=== PATIENT | female | born 1970 | race Caucasian/White ===

== ENCOUNTER 2018-12-29 05:25 | Day surgery (SDC) | payer OTHER ==
[2018-12-26 12:22] LABS: BASOPHILS 0.4 % (0-2); EOSINOPHILS 2.6 % (0-7); HEMATOCRIT 43.8 % (36.0-48.0); HEMOGLOBIN 15.1 g/dL (12-16); LYMPHOCYTES 36.1 % (15-50); MCH 32.5 pg (26.0-34.0); MCHC 34.5 g/dL (31.0-37.0); MCV 94.4 fL (80.0-100.0); MEAN PLATELET VOLUME 11.1 fL (7.4-10.4); MONOCYTES 5.2 % (2-11); NEUTROPHILS 55.7 % (40-80); PLATELET COUNT 191 10x3/uL (130-400); RBC 4.64 10x6/uL (4.00-5.40); RDW 13.2 % (11.5-14.5); WBC 8.4 10x3/uL (4.8-10.8)
[2018-12-26 12:31] LABS: ANION GAP 15.2 mmol/L (8-16); CARBON DIOXIDE 26.5 mmol/L (21.0-32.0); CREATININE - SERUM 1.1 mg/dL (0.6-1.3); POTASSIUM - SERUM 4.7 mmol/L (3.5-5.1)
[~2018-12-29] VITALS: Ht 175.3 cm; Wt 75.9 kg
[2018-12-29] VITALS (11 sets, daily range): BP systolic 94–117; BP diastolic 56–65; Ht 175.3 cm; Wt 75.9 kg
--- NOTE | ~2018-12-29 | OP ---
PATIENT NAME: KATHERIN AGUIRRE MEDICAL RECORD: [id number] :66 LOCATION:D[facility] ADMISSION DATE: SURGEON: ISABEL DELEON MD DATE OF OPERATION: 12/29/2018 PREOPERATIVE DIAGNOSES: 1. Dysfunctional bleeding. 2. Dyspareunia. 3. History of abnormal Pap. 4. Chronic endometritis. POSTOPERATIVE DIAGNOSES: 1. Dysfunctional bleeding. 2. Dyspareunia. 3. History of abnormal Pap. 4. Chronic endometritis. 5. Pelvic adhesive disease. PROCEDURE PERFORMED: Lysis of adhesions, total laparoscopic hysterectomy, bilateral salpingectomy. SURGEON: Isabel Deleon MD. EXT JS DEVELOPER: Dominick Weber MD. ANESTHESIOLOGIST: Dr. Andrews. ANESTHETIC: General. FINDINGS: Uterus is boggy and otherwise unremarkable. There appears to be powder burn lesion anterior to the uterus consistent with endometriosis. The ovary on the right is unremarkable. The left ovary was absent. At the time of vaginal close, the vaginal mucosa was unremarkable. Dense adhesions of the bladder along the anterior surface of the cervix was encountered. SPECIMENS REMOVED: Uterus with portions of right tube and cervix. SPECIMEN DISPOSITION: Pathology. ESTIMATED BLOOD LOSS: Less than or equal to 100 cc. FLUIDS: 1700 cc of lactated Ringer's. URINE OUTPUT: Approximately 400 cc of clear urine. COMPLICATIONS: None. DRAINS: Gao to gravity discontinued in women's services. INDICATIONS: The patient is a 48-year-old female with postcoital spotting and intermittent spotting. The patient also has had a history of abnormal Pap smears. The patient reports dyspareunia and a negative impact on her quality of life. The patient has been counseled and strongly desires definitive treatment for history of abnormal Pap smears and bleeding irregularities. OPERATIVE REPORT [id number] KATHERIN AGUIRRE DESCRIPTION OF PROCEDURE: After informed consent was assured, the patient was taken to the operating room where anesthetic was obtained. The patient was now prepped and draped in the usual sterile fashion. Uterine manipulator was placed and attention was directed to the abdomen where an incision was made and a trocar inserted. Pneumoperitoneum was developed. Assessment of the pelvis reveals dense adhesions in the bladder anteriorly and medical claims assistant surgeon is called. The dissection begins on the left. With the accessory trocars placed in the right and left lower quadrants, a grasper was used to elevate what remained of the left tube and the dissection was carried out underneath this across the uteroovarian ligament and round ligaments. The broad ligament was opened and meticulous dissection of the adhesions of the bladder from the cervix begins on the left. Once the bladder flap was developed to the midline, the vessels were skeletonized, compressed, coagulated, and on the left. Attention was now directed to the right. Remnants of the tube were attached to the ovary and these were removed. Dissection was carried out medial to the ovary across the uteroovarian ligament and round ligaments. The broad ligament was opened and dissection of the adhesions from the cervix anteriorly continues. Posteriorly, the tissue was dissected free of the vessel bundle. The vessels were now compressed, coagulated, and . Using a Harmonic scalpel, the removal of the uterus from its attachments to the vagina begins at the 6 o'clock position. The dissection was carried out from 6 to 3 o'clock. It was continued from 6 to 12 and then concluded from 12 to 3. Uterus is now placed into the vagina. Pneumoperitoneum remains and the pelvis was irrigated. No adequate hemostasis has been achieved. Uterus is now removed and the cuff closed in a horizontal fashion with interrupted Vicryl stitches. After conclusion of the close, the pelvis was again inspected and irrigated. Adequate hemostasis again is noted. The trocars were removed after release of the pneumoperitoneum and the skin reapproximated with subcuticular stitch. Sponge, lap, needle counts were correct times 2 at the close of this procedure. TRANSINT:[id number] Voice Confirmation ID: [id number] DOCUMENT ID: [id number] 01/05/2019 Edited, procedure performed line was missing, dmm. ISABEL DELEON MD CC: [id number] DICTATION DATE: 12/29/18920 PLANT TECH: 12/29/1849 [facility] 12/29/18 [facility] [address] [place] [address]
[~2018-12-29 05:25] MED LIST: XANAX0.5 MG PO
[2018-12-29 07:08] LABS: HCG URINE NEGATIVE (NEGATIVE)
--- NOTE | 2018-12-29 10:22 | NUR ---
HEART RATE 47 TO 49 BPM. REPORTED TO ANESTHESIA. NO NEW ORDERS AT THIS TIME. OK TO DISCHARGE TO THE FLOOR PER ANESTHESIA.
--- NOTE | 2018-12-29 10:39 | NUR ---
RECEIVED PT FROM VIA STRETCHER TO ROOM 1274. PT TRANSFERS ONTO STRETCHER PER SELF. VSS. PT SLIGHTLY DROWSY. C/O ABDOMINAL/INCISIONAL PAIN OF "8" ON 0-10 PAIN SCALE. HRRR WITHOUT AUDIBLE MURMUR. BBS CLEAR. BS HYPOACTIVE X 4. ABDOMEN SOFT/NON-DISTENDED. 3 LAP INCISIONS WITHOUT REDNESS, SWELLING OR DRAINAGE NOTED. NEG HOMANS' SIGN. PPP. NO EDEMA NOTED TO BLE. SCDS ON BLE. PUMP ON. MALONE TO GRAVITY DRAINING CLEAR, YELLOW URINE. PIV OF LR INFUSING AT 125 ML/HR TO LEFT WRIST. SITE CLEAR. PT ORIENTED TO ROOM, BED, AND CALL LIGHT. SR UP X 2. CALL LIGHT IN REACH.
--- NOTE | 2018-12-29 10:43 | NUR ---
TORADOL 30 MG GIVEN SIVP OVER 2 MINUTES. PT INSTRUCTED ON MED. VERBALIZES UNDERSTANDING. ICE PACK TO INCISION.
--- NOTE | 2018-12-29 10:49 | NUR ---
PT C/O NAUSEA. ZOFRAN 4 MG GIVEN SIVP OVER 2 MINUTES. PT INSTRUCTED ON MED. VERBALIZES UNDERSTANDING.
--- NOTE | 2018-12-29 11:06 | NUR ---
FAISAL DC'D WITH 250 ML OF CLEAR, YELLOW URINE NOTED IN BAG. PT ANGELINA WELL. INSTRUCTED PT TO CALL NURSE FOR ASSISTANCE TO BATHROOM. VERBALIZES UNDERSTANDING.
--- NOTE | 2018-12-29 12:00 | NUR ---
PT OOB AND AMB TO BR. VOIDS LESS THAN 50 ML OF CLOUDY, YELLOW URINE. PERICARE DONE PER PT. SCANT AMT OF SEROSANGUINOUS DISCHARGE NOTED ON TISSUE. PERIPAD AND PANTIES ON. PT AMBULATES BACK TO BED. ANGELINA ACTIVITY WELL. PT PROVIDED SALTINE CRACKERS AND WATER.
--- NOTE | 2018-12-29 12:22 | NUR ---
DR DELEON ON UNIT. STATES PT MAY DC HOME IF PT DESIRES AFTER CRITERIA MET- ABLE TO KEEP LIQUIDS DOWN AND VOID.
--- NOTE | 2018-12-29 13:40 | NUR ---
PT OOB AND AMB TO BR. VOIDS 200 ML OF CLEAR, YELLOW URINE. PT AMB BACK TO BED. TOLERATES ACTIVITY WELL. PT STATES DESIRE TO DC HOME. DENIES NAUSEA. PIV DC'D WITH CATHELON INTACT. PRESSURE BANDAGE TO SITE. PT ANGELINA WELL.
[2018-12-29] MEDS ORDERED: MOBIC7.5 MG PO (13:54)
[2018-12-29] MEDS ORDERED: NEURONTIN 300300 MG PO (13:54)
[2018-12-29] MEDS ORDERED: OXYCODONE-APAP1 T10 PO (13:55)
--- NOTE | 2018-12-29 14:00 | NUR ---
DR DELEON CALLS. NOTIFIED OF PT MEETING CRITERIA AND DESIRE TO DC HOME.
--- NOTE | 2018-12-29 14:06 | NUR ---
PT C/O ABDOMINAL PAIN OF "7" ON 0-10 PAIN SCALE. PERCOCET 5/325 2 TABS GIVEN PO ORDERED. NEURONTIN 300 MG GIVEN PO ORDERED. PT INSTRUCTED ON MEDS. VERBALIZES UNDERSTANDING.
--- NOTE | 2018-12-29 14:15 | NUR ---
DISCHARGE INSTRUCTIONS GIVEN TO PT. PT VERBALIZES UNDERSTANDING OF ALL INSTRUCTIONS. COPIES GIVEN TO PT. PT GIVEN RX FOR PERCOCET, NEURONIN AND MOBIC. PT PREPARES FOR DISCHARGE.
--- NOTE | 2018-12-29 14:30 | NUR ---
PT READY FOR DISCHARGE. DISCHARGED IN STABLE CONDITION VIA WHEELCHAIR TO PRIVATE VEHICLE. PT ANGELINA WELL.
== END 2018-12-29 14:30 | disposition home or self-care (01) ==
LOC: D.OPS 05:25 → D.PAN 07:30 → D.OPS 07:30 → D.LD 10:30 → D.OPS 14:30
PROVIDERS: Obstetrics & Gynecology
DX: N93.8 Other specified abnormal uterine and vaginal bleeding (principal); N94.10 Unspecified dyspareunia; N71.1 Chronic inflammatory disease of uterus; N32.89 Other specified disorders of bladder; N73.6 Female pelvic peritoneal adhesions (postinfective); Z01.812 Encounter for preprocedural laboratory examination